=== PATIENT | female | born 1935 | race Two or more races ===

== ENCOUNTER 2018-01-31 09:24 | Day surgery (SDC) | payer MEDICARE, BC ==
[2018-01-31] VITALS (9 sets, daily range): BP systolic 137–172; BP diastolic 72–83
[~2018-01-31] VITALS: Ht 160 cm; Wt 74.4 kg
--- NOTE | 2018-01-31 06:53 | Anethesia Preoperative Eval ---
Anesthesia Pre-op PMH/ROS General Date of Evaluation: Jan 31, 2018 Time of Evaluation: 06:52 Anesthesiologist: genie ASA Score: ASA 3 Mallampati Score Class I : Soft palate, uvula, fauces, pillars visible Class II: Soft palate, uvula, fauces visible Class III: Soft palate, base of uvula visible Class IV: Only hard plate visible Mallampati Classification: Class II Surgeon: jacek Diagnosis: abdominal pain Surgical Procedure: egd/colonoscopy Anesthesia History: none Social History: smoking - nonsmoker Family History: no anesthesia problems Allergies: Coded Allergies: CODEINE (Verified Allergy, Severe, 01/31/18) FAINTING PENICILLINS (Verified Allergy, Severe, PUFFY, RASH ALL OVER, THROAT CLOSES UP, 05/12/12) Medications: see eMAR Past Medical History Cardiovascular: Reports: HTN Gastrointestinal/Genitourinary: Reports: GERD Musculoskeletal/Integumentary: Reports: OA Anesthesia Pre-op Phys. Exam Physician Exam Last Vital Signs Date Time Temp Pulse Resp B/P (MAP) Pulse Ox O2 Delivery O2 Flow Rate FiO2 01/31/18 10:14 Room Air 01/31/18 10:06 97.7 82 18 156/75 (102) 99 97.7 Constitutional: NAD Neurologic: CN 2-12 intact Cardiovascular: RRR Respiratory: CTA Gastrointestinal: S/NT/ND Airway Exam Mallampati Score: Class II MO: limited Neck: short TMD: 2fb ROM: limited Anesthesia Pre-op A/P Risk Assessment & Plan Assessment: asa3 Plan: mac Status Change Before Surgery: No Pre-Antibiotics Drug: Noreen Chávez MD Jan 31, 2018 06:53
[~2018-01-31 09:24] MED LIST: ACTIVELLA 0.5-1 EACH PO; Atropine Inj 1mg/10ml Syr IV PRN; CRESTOR10 MG PO; DIOVAN160 MG PO; DiphenhydrAMINE 50mg/ml Inj IVP PRN; GLUCOPHAGE500 MG PO; LR 1000ml 1,000 ML IVLG SCH; Labetalol 5mg/ml 20ml vial IV PRN; Midazolam 2mg/2ml Inj IVP PRN; PRILOSEC40 MG PO; TOPROL XL25 MG PO; fentaNYL 100 mcg/2 mL IV PRN
[2018-01-31] MEDS ORDERED: ASPIR 8181 MG ORAL (10:18)
--- NOTE | 2018-01-31 11:06 | Short Stay Surgery H&P ---
History of Present Illness History of Present Illness Chief Complaint History of colon polyps for screening and abdominal pains with GERD. HPI Leonard Garcia is a 82 year old female who was admitted on for Abdominal Pain/ screening colon Patient History Allergies: Coded Allergies: CODEINE (Verified Allergy, Severe, 01/31/18) FAINTING PENICILLINS (Verified Allergy, Severe, PUFFY, RASH ALL OVER, THROAT CLOSES UP, 05/12/12) PAST MEDICAL HISTORY: (1) Diabetes (2) Hypertension (3) Colon polyp Medication History Scheduled Aspirin* (Aspir 81*), 81 MG ORAL DAILY, (Reported) Metformin Hcl* (Glucophage*), 500 MG PO BID, (Reported) Omeprazole (Prilosec), 40 MG PO DAILY, (Reported) Rosuvastatin Calcium* (Crestor*), 5 MG PO EVERY OTHER DAY, (Reported) Valsartan (Diovan), 160 MG PO DAILY, (Reported) Discontinued Medications Estradiol/Noreth Ac (Activella 0.5-0.1 Mg Tablet), 1 EACH PO, (Reported) Discontinued Reason: Pt stopped taking med Metoprolol Succinate* (Toprol Xl*), 25 MG PO DAILY, (Reported) Discontinued Reason: Pt stopped taking med Review of Systems Cardiovascular: Reports: no symptoms Respiratory: Reports: no symptoms Skeletal: Reports: no symptoms Gastrointestinal: Reports: gastro esophageal reflux disease Genitourinary: Reports: no symptoms Neurologic: Reports: no symptoms Endocrine: Reports: diabetes - type 2 Hematologic: Reports: no symptoms Physical Exam Vital Signs Last Vital Signs Date Time Temp Pulse Resp B/P (MAP) Pulse Ox O2 Delivery O2 Flow Rate FiO2 01/31/18 10:14 Room Air 01/31/18 10:06 97.7 82 18 156/75 (102) 99 97.7 Skin: normal HENT: normal Heart: normal Lungs: normal Abdomen: normal Extremities: normal Genitourinary: normal Plan Plan of Care Upper and lower GI endoscopies with biopsy. Preop Interventions R/O colon polyps/ CA and gastritis ? Helicobacter pylori infection Summary of Findings see the reports Attestation Are the patient's medical conditions optimized for surgery? Attestation Response: yes Herbie Jim MD Jan 31, 2018 11:06
--- NOTE | 2018-01-31 11:07 | Pre-Procedure Note/Attestation ---
Pre-Procedure Note/Attestation Complete Prior to Procedure Planned Procedure: left Procedure Narrative: Examiantion of the upper and the lower GI tract Indications for Procedure Pre-Operative Diagnosis: R/O gastritis/peptic ulcer/colon polyps Attestation I attest that I discussed the nature of the procedure; its benefits; risks and complications; and alternatives (and the risks and benefits of such alternatives ), prior to the procedure, with the patient (or the patient's legal life assurance representative). I attest that, if there was a reasonable possibility of needing a blood transfusion, the patient (or the patient's legal life assurance representative) was given the [place] [employer] [facility] standardized written summary, pursuant to the Ganesh Familia Blood Safety Act ([place] Health and Safety Code # 1645, as amended). I attest that I re-evaluated the patient just prior to the surgery and that there has been no change in the patient's H&P, except as documented below: Herbie Jim MD Jan 31, 2018 11:07
[2018-01-31] MEDS ORDERED: Propofol 200mg/20ml IV ONE (11:20)
[2018-01-31] MEDS ORDERED: LR 1000ml ONE (11:20)
[2018-01-31] MEDS ORDERED: Lidocaine 1% MPF 10mg/ml 5ml ONE (11:20)
--- NOTE | 2018-01-31 13:00 | Discharge Instructions ---
Discharge Instructions Discharge Instructions Follow up with: visit the doctor after 2 weeks For Congestive Heart Failure Reminder Report to your physician any weight gain of 5 pounds or more in one week. Herbie Jim MD Jan 31, 2018 13:00
--- NOTE | 2018-01-31 13:00 | Endoscopy Procedure Note ---
Endoscopy Procedure Note General Indication for Procedure: GERDand heartburn and abdomial pains. History of colon polyps Procedures Performed: EGD - 5 mm peduncluatedinflammatory polyp in lower midbody of stomach that was removed by hot snare; otherwise normal upper GI. endoscopy. Biopsy from gastric body was also done per random., colonoscopy - Extremely difficult colonoscopy due to poor prep and high redandancy of colon, GradII hemorrahoids found only otherwise normal total colonoscopy. Specimen: yes Pt Tolerated Procedure Well: Yes Anesthesia Anesthesiologist: Dr. Tan Anesthesia: moderate sedation Medications Medication Given: see anesthesia record Inserted Devices Implant(s) used?: No Quality Quality of Bowel Preparation: Poor Did scope reach the cecum?: Yes If none of the above apply,why: Extremely difficult colonoscopy due to poor prep and high redandancy of colon. Was there any complications?: No GI Core Measures 50 yrs or older w/o bx or poly: Yes 10yrs. F/U not recommended: No If not recommended, why?: Med reason:<3 yrs.: System Reason:<3 yrs.: Last colonoscopy >= to 3yrs: Yes Herbie Jim MD Jan 31, 2018 13:00
--- NOTE | 2018-01-31 14:01 | Immediate Post-Op Evaluation ---
Immediate Post-Op Evalulation Immediate Post-Op Evalulation Procedure: egd/colonoscopy/bx Date of Evaluation: Jan 31, 2018 Time of Evaluation: 13:10 IV Fluids: 250ml lr Blood Products: none Estimated Blood Loss: negligible Blood Pressure Systolic: 137 Blood Pressure Diastolic: 63 Pulse Rate: 72 Respiratory Rate: 18 O2 Sat by Pulse Oximetry: 99 Temperature (Fahrenheit): 97.4 Pain Score (1-10): 0 Nausea: No Vomiting: No Complications none Patient Status: awake, reacts, patent Hydration Status: adequate Drug: Noreen Chávez MD Jan 31, 2018 14:01
--- NOTE | 2018-01-31 14:11 | 48 Hour Post Anesthesia Eval ---
Post Anesthesia Evaluation Procedure: egd/colonoscopy/bx Date of Evaluation: Jan 31, 2018 Time of Evaluation: 13:13 Blood Pressure Systolic: 148 0: 73 Pulse Rate: 78 Respiratory Rate: 18 Temperature (Fahrenheit): 97.4 O2 Sat by Pulse Oximetry: 99 Airway: patent Nausea: No Vomiting: No Pain Intensity: 0 Hydration Status: adequate Cardiopulmonary Status: stable Mental Status/LOC: patient returned to baseline Post-Anesthesia Complications: none Follow-up care needed: N/A Noreen Gallegos MD Jan 31, 2018 14:11
--- NOTE | 2018-01-31 19:30 | Operative Note - Dictated ---
DATE OF OPERATION: 01/31/2018 SURGEON: Herbie Jim M.D. PROCEDURE: Esophagogastroduodenoscopy with polypectomy and gastric biopsy. PREOPERATIVE DIAGNOSIS: History of gastroesophageal reflux, abdominal pain. POSTOPERATIVE DIAGNOSIS: A 0.5 cm pedunculated inflammatory polyp found in the lower mid body of the stomach over the lesser curvature, which was removed with hot snare, otherwise complete normal upper GI endoscopy. Biopsy was also done per random from gastric body. MEDICATION USED: Per Dr. Tan anesthesiologist. INSTRUMENT: GIF Olympus upper GI video endoscope. DESCRIPTION OF PROCEDURE: The patient after arriving at the endoscopy unit, was told about risks and benefits of the procedure which she accepted and signed informed consent. At this time, she was put on the left lateral decubitus position. After adequate IV sedation, the scope was gently passed through the cricopharyngeal area, was lodged into the upper esophagus and gradually advanced towards gastroesophageal junction. The entire length of the esophagus looked normal. The GE junction also looked normal and there was no Beck's or hiatal hernia. At this time, the scope was advanced into the stomach. Gastric cavity was distended. Gastric fold was examined, which looked normal without any evidence of gastritis. However, there was an incidental finding of half a centimeter pedunculated inflammatory polyp , which was covered with visible small vessels. This looked benign however and it was grabbed with hot snare and totally removed and sent to the pathology lab. The rest of the stomach, as I mentioned was completely normal and at this point, one random biopsy from gastric body was also obtained. Finally, the scope was passed through the pylorus. First and second portion of duodenum were found to be also completely normal. At this time, the scope was pulled out and procedure was terminated. The patient tolerated the procedure well. Herbie Jim M.D. DR: SABINA JOB#: [id number] CC:
--- NOTE | 2018-01-31 19:45 | Operative Note - Dictated ---
DATE OF OPERATION: 01/31/2018 SURGEON: Herbie Jim M.D. PROCEDURE: Total colonoscopy. PREOPERATIVE DIAGNOSIS: History of colon. POSTOPERATIVE DIAGNOSES: 1. Grade 2 internal hemorrhoids. 2. Extremely difficult and redundant colon with poor colonic preparation. Examination was done up to the base of the cecum, no polyps or tumors found. MEDICATION USED: Per Dr. Tan, anesthesiologist. INSTRUMENT: GIF Olympus video colonoscope. DESCRIPTION OF PROCEDURE: The patient after arriving endoscopy at the endoscopy unit, was told about risks and benefits of the procedure, which she accepted and signed informed consent. She was then put on the left lateral decubitus position. After adequate IV sedation, the scope was gently passed through the anal area which revealed evidence of prolapsed internal hemorrhoids, which was considered to be of grade 2, however, it was not friable. At this time, the scope was advanced into the rectal area. A retroflexion maneuver was applied and this did not reveal any other abnormalities in the rectum. It is important to mention that the colon cleanup was extremely poor and there was liquidy stool all around the colon and it is quite difficult along with high redundancy of the colon as well, which approximately took 1 hour to finish this procedure due to all these difficulties and limitations. The scope gradually was advanced into the descending colon, transverse and finally right colon. Multiple maneuvers had to be done during this procedure with putting the patient in different positions to be able to finally pass the scope up to the base of the cecum. As I mentioned, this examination took extreme time, almost 1 hour. Finally after reaching to the base of the cecum and finding no polyps or tumors or any other abnormalities, the scope was gradually pulled out within 7 minutes as no other pathology was found. The patient tolerated the procedure well and left the endoscopy room in a good condition. Herbie Jim M.D. DR: SABINA JOB#: [id number] CC:
== END 2018-01-31 15:10 | disposition home or self-care (01) ==
LOC: GAS 09:24
DX: Z12.11 Encounter for screening for malignant neoplasm of colon (principal); K64.8 Other hemorrhoids; Q43.8 Other specified congenital malformations of intestine; Z86.010 Personal history of colon polyps; K29.50 Unspecified chronic gastritis without bleeding; K21.9 Gastro-esophageal reflux disease without esophagitis; K31.7 Polyp of stomach and duodenum; E11.9 Type 2 diabetes mellitus without complications; I10 Essential (primary) hypertension; M19.90 Unspecified osteoarthritis, unspecified site; Z79.82 Long term (current) use of aspirin; Z88.5 Allergy status to narcotic agent; Z88.0 Allergy status to penicillin
CPT/HCPCS: 43239; 43251; 82962; G0105; J2704; J7120; 94003; 94150